=== PATIENT | female | born 1985 | race Caucasian/White ===

== ENCOUNTER 2019-09-09 21:11 | Emergency (ER) | payer OTHER, SELFPAY ==
[2019-09-09 21:13] VITALS: BP 129/92; PULSE 121; RESP 25; TEMP 37.2; O2SAT 99; BMI 31.1
[2019-09-09 21:15] VITALS: BP 127/80; PULSE 106; RESP 21; TEMP 37.2; O2SAT 100
--- NOTE | 2019-09-09 21:28 | CT_ITS ---
STUDY: CT ABDOMEN AND PELVIS WITH CONTRAST REASON FOR EXAM: Female, 34 years old. LEFT SIDE ABD PAIN, S/P HYSTERECTOMY 4 WEEKS AGO, UTERUS ONLY, FEVER RADIATION DOSAGE (If Supplied By Facility): CTDIvol = ( 10.90 ) mGy, DLP = ( 611.55 ) mGycm TECHNIQUE: Transaxial images were obtained from the dome of the diaphragm to the symphysis pubis without oral contrast. IV 100mL Isovue-300 was administered. Sagittal and coronal images were reconstructed. Individualized dose optimization techniques were used for this CT. COMPARISON: None. FINDINGS: The visualized lung bases are unremarkable. The visualized portions of the heart are within normal limits. Normal liver. Normal gallbladder and extrahepatic biliary system. Normal spleen. Normal pancreas. Normal bilateral adrenal glands. Normal right kidney. There is a too small to characterize low-attenuation focus within the left kidney which may reflect an underlying cyst. Normal visualized stomach. Normal small intestine. Normal colon. The appendix is visualized and appears normal. Normal abdominal aorta. Normal inferior vena cava. There is a filling defect noted within the right ovarian vein (image 59 series 2). There are filling defects noted within the left ovarian vein as well. Normal urinary bladder. There is absence of the uterus consistent with a prior hysterectomy. There are postsurgical changes along the anterior abdominal wall. Normal osseous structures. 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 N.B. : The above information has been verbally conveyed by Phuong Mccormick MD to Dr. Alex MD, on 09/09/2019 22:18:42 (ET). Electronically Signed: Phuong Mccormick MD at 22:19 EDT Tel , Service support ,
--- NOTE | 2019-09-09 21:31 | ED.VISSUMM ---
- ER Visit Summary Date of Service: 09/09/19 Chief Complaint: Left-sided abdominal discomfort and fever History of Present Illness: The patient is a 34 F no seen past medical history. 8 weeks ago patient had dental surgery. 4 weeks ago she had a laparoscopic hysterectomy with takedown of adhesions done by Dr. Leavitt at [facility]. Patient states she was doing well. Today she came down with a fever and left-sided abdominal discomfort. Said the pain is primarily when she lays on her right side she feels pulling on the left. She is able to eat and drink. She denies any nausea vomiting or diarrhea. No dysuria or constipation. No cough no sore throat. No earache. Patient states she was doing well until this afternoon. Physical Examination: Young female no acute distress vital signs currently stable afebrile. Temperature 99. Pulse ox 9 9% on room air no hypoxia. H EENT exam unremarkable. Moist with membranes. Posterior pharynx normal. TMs normal. Neck nontender no lymphadenopathy. Lungs clear to auscultation bilaterally. Heart regular rhythm rate about 110 no murmur. Abdomen soft, nondistended. Normal bowel sounds no peritoneal signs. The tenderness on the left she describes that she lays on her right side is not really reproducible. She has a periumbilical laparoscopic surgical site which is dry and clean without signs of infection. No redness. She is moving all 4 extremities. Calves are nontender. Back nontender. Skin unremarkable. Neurologically she is awake and alert with no focal motor deficits. Test Results: White count 3. Hemoglobin 11. No labs available for comparison. No bands. Chemistries normal normal creatinine and gap. CT abdomen pelvis with IV contrast showed a normal appendix. The only significant abnormality was bilateral ovarian vein thrombosis. I specifically discussed this with the radiologist who called me to tell me her read. She states she seen this before after surgery. Urinalysis has 25-50 white cells but no nitrates and only rare bacteria. Clinically she is no dysuria. I will send a culture but not treat at this time. I discussed this with the patient. Emergency Department Course and Treatment: Patient status post hysterectomy laparoscopically with takedown of adhesions about 4 weeks ago. Has a benign exam but complains of abdominal pain on the left and fever. Treatment Plan: Patient will be started on a daily aspirin. I spoke to the ObGyn's diesel engine tester who is on-call for him. Patient will follow-up with their office. I discussed all test results with the patient and her . Repeat exam her abdomen is benign at 23:20 PM. Disposition: Discharged to home Impression: Left-sided abdominal pain with fever Status post laparoscopic hysterectomy 4 weeks ago Lateral ovarian vein thrombosis of uncertain significance This note was generated with [employer] dictation software. It may contain incorrect words, spelling, and punctuation that were not noted in review of the chart prior to signing ED Disposition - Plan for ED Patient: Disposition: Home or Assisted Living Instructions: ABDOMINAL PAIN, Unknown Cause, (Female) Referrals: Arnie Leavitt, [STAFF PHYSICIAN] - As soon as possible Additional Instructions: The only abnormality we found on your labs and CAT scan crow was small clots in the veins of your ovaries. This beat may be of no specific significance. We will start you on a baby aspirin a day. And have you follow-up with your CLIENT APPLICATION SUPPORT SPECIALIST Dr. Leavitt. I spoke to his diesel engine tester crow.
[2019-09-09] MEDS: 0.9% Normal Saline 1,000 ML 1000 ML IV (21:35)
[2019-09-09 21:39] LABS: Absolute Lymphocyte Count 0.61 X10^3/uL (0.83-4.51); Absolute Neutrophil Count 2.4 X10^3/uL (2.0-7.7); Basophil# 0.01 X10^3/uL; Basophil% 0.3 % (0-1); Eosinophil# 0.01 X10^3/uL; Eosinophils% 0.3 % (0-5); Hematocrit 35.6 % (37-47); Hemoglobin 11.1 g/dL (12.0-15.0); Lymphocyte # 0.61 X10^3/ul (4.0); Lymphocyte % 16.5 % (19-41); Mean Corp Hgb Conc 31.2 g/dL (32-36); Mean Corpuscular Hgb 24.3 pg (27.0-32.0); Mean Corpuscular Volume 78.1 fL (81-99); Mean Platelet Vol. 9.2 fl (6.2-12.0); Monocyte# 0.62 X10^3/uL; Monocyte% 16.8 % (0-10); NRBC Flagged by Analyzer 0 % (0-5); Neutrophil # 2.43 X10^3/uL (2.7-7.7); Neutrophil % 65.8 % (47-70); Platelet Count 267 K/mm3 (150-450); RBC Distribution Width CV 15.5 % (11.6-14.6); RBC Distribution Width SD 43.8 fl (35.1-43.9); Red Blood Count 4.56 M/mm3 (4.2-5.4); White Blood Count 3.7 K/mm3 (4.4-11.0)
[2019-09-09 21:48] LABS: Anion Gap 8 (5-15); BUN 9 mg/dL (7-18); BUN/Creat Ratio 9.6 RATIO (10-20); Calcium,Total 9.1 mg/dL (8.5-10.1); Chloride 106 mmol/L (98-107); Creatinine, Serum 0.94 mg/dL (0.55-1.02); EST Glomerular Filtration Rate 73 mL/min (>60); Est Glom Filt Rate - Afr Amer 88 mL/min (>60); Estimated Creatinine Clearance 67.33 ml/min; Glucose 105 mg/dL (74-106); Potassium 3.6 mmol/L (3.5-5.1); Sodium Level 139 mmol/L (136-145)
[2019-09-09 22:44] VITALS: BP 183/88; PULSE 88; RESP 20; TEMP 37.3; O2SAT 91
[2019-09-09 22:45] LABS: Mucous, Urine 0 SEEN /hpf (<or=2+); Red Blood Cells-Urine 0 SEEN /hpf (0-5)
[2019-09-09 22:51] LABS: Color, Urine Straw (Yellow); Glucose, Dipstick Normal (Normal); Ketone-Dipstick Negative (Negative); Leukocyte Esterase-Dipstick 500 /ul (Negative); Nitrite-Dipstick Negative (Negative); Occult Blood-Urine 25 /ul (Negative); Protein-Dipstick Negative (Negative); Urine Bilirubin Dipstick Negative (Negative); Urine Clarity Cloudy (Clear); Urine Urobilinogen Normal (Normal)
--- NOTE | 2019-09-09 22:51 | ED.DEP ---
ED Disposition - Plan for ED Patient: Disposition: Home or Assisted Living Instructions: ABDOMINAL PAIN, Unknown Cause, (Female) Referrals: Arnie Leavitt, [STAFF PHYSICIAN] - As soon as possible Additional Instructions: The only abnormality we found on your labs and CAT scan tonight was small clots in the veins of your ovaries. This beat may be of no specific significance. We will start you on a baby aspirin a day. And have you follow-up with your FLAT LOCK OPERATOR Dr. Leavitt. I spoke to his vp securities crow.
[2019-09-09 23:04] LABS: Squamous Epithelial Cells - UA 0-5 SEEN /hpf (5-10)
[2019-09-09 23:05] LABS: White Blood Cells 25-50 SEEN /hpf (0-5)
[2019-09-09 23:06] LABS: Bacteria RARE /hpf (None Seen)
[2019-09-09 23:19] VITALS: BP 123/78; PULSE 87; RESP 18; O2SAT 99
== END 2019-09-09 23:35 | disposition home or self-care (01) ==
PROVIDERS: Emergency Provider Emergency Medicine
DX: R10.9 Unspecified abdominal pain (principal); R50.9 Fever, unspecified; I82.890 Acute embolism and thrombosis of other specified veins; Z90.710 Acquired absence of both cervix and uterus
CPT/HCPCS: 74177; 80048; 81001; 85025; 87086; 87088; 96360; 96361; 99285; J7030; Q9967

== ENCOUNTER 2022-05-25 10:29 | Day surgery (SDC) | payer MEDICAID, SELFPAY ==
[2022-05-25] VITALS (15 sets, daily range): BP systolic 107–135; BP diastolic 63–92; PULSE 66–95; RESP 12–18; TEMP 36.3–37.5; O2SAT 92–100; BMI 28.8
--- NOTE | 2022-05-25 | GALL_PTH ---
PATIENT: MATTHIEU SORIANO LOC: [facility] U#:[id number] AGE/SX: 37/F ROOM: RE05/25/[address]: Dr. Ivonne Arreguin MD : 1985 BED: DIS: 05/25/2022 SPEC #: [id number] RECD: 05/25/22 14:49 STATUS: NISA FADY #: [id number] GARCIA: 05/25/22 00:[address]: Ivonne Arreguin DEPT: SURGICAL PATHOLOGY RECD BY: Daniel Case ENTERED: 05/28/22 10:03 SP TYPE: [facility] DR: Dr. Cuco Boyd, DO Tissues: Gallbladder, NOS Procedures: Surgery Specimen Level III HEADER OPERATION: Laparoscopic cholecystectomy with IOC PRE-OP DIAGNOSIS: Biliary dyskinesia, draining postoperative wound TISSUE SUBMITTED: Gallbladder MICROSCOPIC DIAGNOSIS Gallbladder, cholecystectomy: Mild chronic cholecystitis. See comment. SHANNON:allison 05/29/2022 COMMENT No stones are identified in the container or in the gallbladder. MICROSCOPIC DESCRIPTION Slides are reviewed. GROSS DESCRIPTION Received is one container labeled with the patient's name and designated gallbladder. The specimen consists of a gallbladder measuring 8 x 2.5 x 2.7 cm. The external surface is smooth and glistening. Focally, it is granular, hemorrhagic and contains cautery artifact. The lumen of the gallbladder contains green mucoid bile and no calculi. The mucosa is bile-stained and without any mass lesions. The gallbladder wall averages 0.1 cm in thickness and is free of mass lesions. Ticket Collector sections of the gallbladder and the cystic duct at margin of resection are submitted in one cassette. / AM:allison 05/28/2022 TC:3 CPT: 46412
[2022-05-25 11:13] LABS: Hematocrit 41.7 % (37-47); Hemoglobin 14.5 g/dL (12.0-15.0); Mean Corp Hgb Conc 34.8 g/dL (32-36); Mean Corpuscular Hgb 31.2 pg (27.0-32.0); Mean Corpuscular Volume 89.7 fL (81-99); Mean Platelet Vol. 9.8 fl (6.2-12.0); Platelet Count 203 K/mm3 (150-450); RBC Distribution Width CV 11.6 % (11.6-14.6); RBC Distribution Width SD 37.9 fl (35.1-43.9); Red Blood Count 4.65 M/mm3 (4.2-5.4); White Blood Count 3.2 K/mm3 (4.4-11.0)
[2022-05-25] MEDS: Lactated Ringers 1,000 ML 15 ML IV ×3 (11:15→14:29)
[2022-05-25 11:47] LABS: Anion Gap 5 (5-15); BUN 11 mg/dL (7-18); BUN/Creat Ratio 13.3 RATIO (10-20); Calcium,Total 9.1 mg/dL (8.5-10.1); Chloride 107 mmol/L (98-107); Creatinine, Serum 0.83 mg/dL (0.55-1.02); EST Glomerular Filtration Rate 83 mL/min (>60); Est Glom Filt Rate - Afr Amer 100 mL/min (>60); Estimated Creatinine Clearance 80.91 ml/min; Glucose 100 mg/dL (74-106); Sodium Level 139 mmol/L (136-145)
--- NOTE | 2022-05-25 11:52 | HP.PCM_ITS ---
History and Physical Date of Admission: 05/25/22 Date of Service:? 05/23/22 MR#: [id number] Acct: [id number] Name:MATTHIEU MAZARIEGOS Rep #: [id number] : 1985 ? ? Provider: Dr. Ivonne Arreguin MD Age/Sex:? 37/F ? ? Location: [facility] Status: Signed Intake Vital Signs ? 05/23/2213:24 Height 5 ft 4 in Weight: 170 lb 6 oz BMI 29.2 BP 112/70 Blood Pressure Location Lt brachial Position Sitting Respiration 17 Pulse 75 Pulse Source Monitor Temp 97.6 F L Temp Source Temporal Pulse Oximetry (%) 99 Oxygen Delivery Method room air Intake Visit Reasons:?ABDOMINAL PAIN & ABNORMAL HIDA Chief Complaint: Abd Pain & Abnormal HIDA Animal Laboratory Technician Required: No Is patient in pain?: Yes Allergies ibuprofen Adverse Reaction (Verified 05/23/22 13:25) Nausea Medications cholecalciferol (vitamin D3) 50 mcg (2,000 unit) capsule 2,000 units PO DAILY 09/09/19 [History Confirmed 05/23/22] ergocalciferol (vitamin D2) 1,250 mcg (50,000 unit) capsule 50,000 unit PO Q7D 09/09/19 [History Confirmed 05/23/22] ferrous gluconate 324 mg (37.5 mg iron) tablet 324 mg PO DAILY 09/09/19 [History Confirmed 05/23/22] fluoxetine 20 mg capsule 20 mg PO DAILY 09/09/19 [History Confirmed 05/23/22] aspirin 81 mg tablet,delayed release (Adult Low Dose Aspirin) 81 mg PO DAILY 05/23/22 [History Confirmed 05/23/22] PFSH Surgical History?(Updated 05/23/22 @ 13:40 by Ashley Johnson) H/O: hysterectomy S/P section Social History? Smoking Status:? Never smoker alcohol intake:? never substance use type:? does not use HPI HPI HPI: 37 year-old female presents due to right upper quadrant/epigastric pain which she gets daily states is worse after eating.? Patient had an ultrasound showed no gallstones normal gallbladder wall no pericholecystic fluid normal common bile duct.? Patient's HIDA scan showed ejection fraction of 35% at 58 minutes which is abnormal.? Patient was previously on omeprazole 40 mg p.o. daily for about 2 months stopped right before she had the HIDA scan as she is not having difference with the pain.? Patient states HIDA scan did make her pain worse.? Patient states she has not been really able to eat is nauseated daily denies any vomiting currently.? Patient did have a hysterectomy about 2 years ago at her umbilicus she had an incision that has continued to drain slightly patient states that she was told by her BIOLOGY ADJUNCT INSTRUCTOR to put some powder in it. ROS General General: Yes weight change and fatigue; No appetite, colon cancer or breast cancer Additional Details: Weight Loss HEENT HEENT: No difficulty swallowing, eye injury, eye surgery, swollen glands or hoarseness Endo Endocrine: No thyroid disease, diabetes mellitus, thyroid cancer, Hair loss, heat intolerance or cold intolerance Skin Skin: No rash or changing moles Musc Musculoskeletal: Yes back problems; No arthritis, rheumatoid arthritis, gout or joint pain Cardio Cardiovascular: No murmur, pacemaker, heart disease, atrial fibrillation, high blood pressure, heart attack, heart stent, palpitations, shortness of breat with exertion or chest pain Psych Psychiatric: Yes depression and anxiety Resp Respiratory: No shortness of breath, No sleep apnea, No cough, No COPD, No asthma, No emphysema and No wheezing Gastro Gastrointestinal: Yes abdominal pain, Yes nausea or vomiting, No diarrhea, Yes constipation, No blood in stool, Yes acid reflux, No hemorrhoids, No ulcers, Yes gallbladder problem and No black,tarry stools Sebas Hematologic: No blood thinners, No blood disorders, No bleeding, No anemia and Yes blood clots Neuro Neurologic: Yes numbness and Yes tingling Exam Const General: cooperative, healthy appearing and no acute distress [facility] Head: normal to inspection Resp Effort & Inspection: normal respiratory effort Cardio Rate: regular rate GI Inspection: non-distended Palpation: soft, no guarding, no hernias and tender (Greatest in the epigastric and right upper quadrant, no guarding or rebound) in the epigastrum, in the LUQ and in the RUQ Other: Patient does present to her umbilicus looks like there is small amount of drainage.? Patient states been like that since her surgery 2 years ago, patient had a hysterectomy with a trocar incision at her umbilicus. Skin General: no rashes or lesions noted Neuro General: patient oriented x3 Extrem General: no clubbing, cyanosis or edema Psych Affect: normal affect Assessment and Plan Assessment and Plan (1) Biliary dyskinesia: ?Status:?Acute ?Comment: at umbilicus (2) Draining postoperative wound: ?Status:?Acute Plan Did personally review patient's HIDA scan as well as ultrasound. Discussed with patient I would not plan to go in at the umbilicus had plan to go above the umbilicus and deal with that at another time as likely it may need surgery to get it stopped draining unsure what is currently draining whether it could be a suture etc.? We will also get the op note from 2 years ago. Reviewed the anatomy with the patient and discussed the procedure: laparoscopic cholecystectomy with cholangiograms, possible open. Review risks including but not limited to bleeding, infection, hernia, bile leak, retained gallstones requiring another procedure ERCP- Endoscopic Retrograde Cholangiopancreatography, injury to another organ (bile ducts, common bile duct, small bowel, etc.) and conversion to an open procedure. All questions were answered.? Patient was agreeable with plan. Ivonne Arreguin M.D. Pager: [phone] [facility] [address] [place] [address], [address] [place] [address] Office: [phone] Coding Level of Care Code Off vis,new,level 4 Diagnoses Biliary dyskinesia? K82.8 Draining postoperative wound? T81.89XA 05/23/22 1349 <Electronically signed by Ivonne Arreguin MD> Date Ivonne Arreguin MD
[2022-05-25] MEDS: Cefazolin 2 GM in 0.9% Normal Saline 100 ML IV (12:04)
--- NOTE | 2022-05-25 12:35 | RAD_ITS ---
STUDY: INTRAOPERATIVE CHOLANGIOGRAM. REASON FOR EXAM: Female, 37 years old. Laparoscopic cholecystectomy. FLUOROSCOPY TIME (if supplied): ( 6 seconds ) minutes/seconds. 27 images were submitted. TECHNIQUE: An intraoperative cholangiogram was performed by the surgeon. Imaging was provided. COMPARISON: None. FINDINGS: The visualized intra and extrahepatic biliary ducts are unremarkable. No intraluminal filling defect is seen. There is free flow of contrast into the duodenum. RAD/Cholangiogram/ O R,Initial IMPRESSION: Unremarkable intraoperative cholangiogram. Electronically Signed: Kelvin Galvan MD at 9:33 EST ,
[2022-05-25] MEDS: Bupivacaine 0.25% 30 ML Vial (13:00)
--- NOTE | 2022-05-25 13:04 | PCM.OPRPT ---
Report of Operation Date of Procedure: 05/25/22 Pre-Operative Diagnosis: Biliary dyskinesia Post-Operative Diagnosis: Same Surgery/Procedure Performed:: Laparoscopic cholecystectomy with cholangiograms Surgeon: Ivonne Arreguin border inspector: Lyric Hunter Type of Anesthesia: General/Supplemental Anesthesiologist: Johnie Burt Special Medications: Ancef 2 g IV x1 Specimen's removed: Gallbladder Estimated Blood Loss (mL): < 10 cc Description of Procedure: Indications: this is a 37 year-old female who developed abdominal pain/nausea/vomiting and on workup was found to have no gallstones, biliary dyskinesia with an ejection fraction of 35% at 58 minutes on a HIDA scan, with a normal common bile duct. Laparoscopic cholecystectomy was elected. Description procedure: The patient was placed on operating table in supine position. A timeout was completed verifying correct patient, procedure, site, position and special equipment prior to beginning procedure. General Anesthesia was induced. The abdomen was prepped and draped in usual sterile fashion. The umbilicus did appear to have a mild fungal infection this area was prepped off with Ioban and prepped separately with Betadine as well. An incision was made in the natural skin line above the umbilicus. The fascia was elevated and incised. The peritoneum was elevated and incised. Entry into the peritoneum was confirmed visually and no bowel was noted in the vicinity of the incision. Harris trocar was placed. The abdomen was insufflated with carbon dioxide to a pressure of 12-15 mmHg. Patient tolerated insufflation well. The laparoscope was then inserted and abdomen inspected. No injuries from initial trocar placement were noted. Additional trochars were then inserted in the following locations 5 mm trocar in the epigastrium and 2 more 5 mm trochars along the right costal margin. The abdomen was inspected no abnormalities were found. The table is placed in reverse Trendelenburg position with the right side up. The dome of the gallbladder was grasped with atraumatic grasper passed through the lateral port and retracted over the dome of the liver. Infundibulum was then grasped with atraumatic grasper through the midclavicular port and retracted to the right lower quadrant. This maneuver exposed Calot's triangle. The peritoneum overlying the gallbladder infundibulum was then incised and cystic duct and artery identified and circumferentially dissected. Bryan catheter was used for cholangiograms. The cholangiogram showed good filling of the common bile duct into the duodenum with no filling defects, good filling of the right and left bile ducts as well. The cystic duct and artery were then doubly clipped and divided close to the gallbladder. The gallbladder then dissected from its peritoneal attachments by electrocautery. Hemostasis was checked and the gallbladder was removed using the endoscopic retrieval bag through the umbilical port. The gallbladder is passed off table as specimen. The gallbladder fossa was irrigated with saline and hemostasis obtained. There is no evidence of bleeding from the gallbladder fossa or cystic artery leakage of bile from the cystic duct stump. Secondary trochars removed under direct vision. No bleeding was noted the trocar sites. The laparoscope was withdrawn and umbilical trocar removed. The abdomen was allowed to collapse. The fascia of the 12 mm trocar was closed with a [id number] 0 Vicryl suture. The skin was closed with sutures of 4-0 Monocryl and Steri-Strips. The patient was extubated. The patient tolerated procedure well and was taken to the postanesthesia care unit in stable condition. Complications None
--- NOTE | 2022-05-25 13:12 | DCINST_ITS ---
Discharge Instructions Diet Discharge Diet: Light diet - advance as tolerated Activity Discharge Activity: May Not Drive (while taking narcotic pain medications.) May shower in (days): 1 Lifting Restrictions: no lifting >20 lbs x 2 wks, no strenuous exercise for 4 wks Dressing / Incision Call your doctor if your incision/area has: Continuous Slow Oozing, Sudden Increased Bleeding, Increased Pain/ Swelling, Increased Redness, Foul Smelling Discharge and Swelling at the incision site Call your doctor if you observe: Fever of 101 or Higher Remove Dressing in: 2 days Cleanse incision/area with: Soap & Water Additional Dressing/Incision Instructions:: Steri-Strips will fall off in 7 to 10 days, if they do not fall off okay to remove after 10 days. Keep supraumbilical incision dressed due to the likely fungal infection in the umbilicus. Use nystatin twice a day in the umbilicus and keep a gauze or cotton ball to keep that area dry as well. Can also use the nystatin at the lower abdominal fold as well. Follow Up Care Please Follow Up With: Ivonne Arreguin MD When: Call the office for a follow-up appointment 2 weeks; after 5 PM and on the weekends call [phone] with any concerns. Test Results: Test results from this visit will be discussed in further detail at your follow- up appointment, if applicable. Discharge Plan Admission Attending Provider: Ivonne Arreguin Primary Care Provider: Cuco Boyd Discharge Orders/Prescriptions Prescriptions: New oxycodone-acetaminophen 5-325 mg tablet 1 tab PO Q6H PRN (Reason: pain) 3 Days Qty: 14 0RF nystatin 100,000 unit/gram powder 1 applic topical BID Qty: 30 0RF Rx Instructions: Apply powder to umbilicus twice daily. Keep gauze or cotton balls in umbilicus to keep that area dry as well. Continued aspirin [Adult Low Dose Aspirin] 81 mg tablet,delayed release (DR/EC) 81 mg PO DAILY ergocalciferol (vitamin D2) 50,000 UNIT capsule 50,000 unit PO Q7D fluoxetine 20 MG capsule 20 mg PO DAILY cholecalciferol (vitamin D3) 2,000 UNIT capsule 2,000 units PO DAILY ferrous gluconate 324 MG tablet 324 mg PO DAILY Other Ambulatory Orders: 12 Lead EKG (Routine) Timeframe: [id number] Location: None Selected Ordered By: Dr. Esteban Lares Referrals / Follow Up: Cuco Boyd DO [Primary Care Provider] - Disposition Disposition (needs filled in before D/C Order can be placed): Home, Self Care
--- NOTE | 2022-05-25 19:50 | SUR.PHASEII ---
AMBULATED TO BATHROOM w/ ONE ASSIST AND WAS ABLE TO VOID. REPORTS NAUSEA RESOLVED AFTER BENADRYL/REGLAN. DENIES NEED FOR PAIN MEDICATION. STATES THEY HAVE A PLAN TO SPEND THE NIGHT AT [facility] WHICH IS EASIER ACCESS INSIDE THE HOUSE. BOTH PATIENT & VERBALIZE UNDERSTANDING OF D/C INSTRUCTIONS.
== END 2022-05-25 20:13 | disposition home or self-care (01) ==
LOC: SDC 10:31 → AC 10:32
PROVIDERS: Anesthesiology; PCP Family Medicine; Referring Provider Surgery; Visit Provider Surgery
PROC: (CPT 47610; principal; 2022-05-25 11:40)
DX: K81.1 Chronic cholecystitis (principal); K82.8 Other specified diseases of gallbladder; T81.89XA Other complications of procedures, not elsewhere classified, initial encounter; F41.9 Anxiety disorder, unspecified; F32.A Depression, unspecified; Z86.19 Personal history of other infectious and parasitic diseases
CPT/HCPCS: 47563; 00790; 74300; 76000; 80048; 84443; 85027; 88304; J7120; J2405

== ENCOUNTER 2022-06-14 05:41 | Emergency (ER) | payer MEDICAID, SELFPAY ==
[2022-06-14 05:44] VITALS: BP 130/78; PULSE 96; RESP 18; TEMP 37.6; O2SAT 96; BMI 30.9
--- NOTE | 2022-06-14 05:57 | EX.ED.DYSGE1 ---
HPI History of Present Illness Chief Complaint: Fever Informant: patient Onset/Context/Timing Onset: Yesterday Context: Gradual Onset Timing: Continuous Quality: Buzzing Location: Head Worsened by: Nothing Relieved by: Nothing Narrative Narrative: Patient presents with headache, weakness, and backache that began yesterday. Patient states she started with a backache and thought she was having a urinary tract infection. Patient states she then developed a headache and weakness all over. Patient states her headache is likely buzzing in her head. Patient states her symptoms have been constant since yesterday. Patient states nothing makes it better nothing makes it worse. Patient admits to a fever and blurred vision. Patient states her headache radiates into her neck and back. [facility] Medical History Anxiety Cardiology follow-up encounter Depression DVT (deep venous thrombosis) Gastric reflux Heartburn History of Clostridium difficile infection History of echocardiogram History of edema History of irregular heartbeat Low iron Non-smoker Restless legs Syncope Thyroid disease Wears dentures Wears glasses Home Medications cholecalciferol (vitamin D3) 50 mcg (2,000 unit) capsule 5,000 units PO DAILY 09/09/19 [History Last Taken Unknown] ergocalciferol (vitamin D2) 1,250 mcg (50,000 unit) capsule 50,000 unit PO Q7D 09/09/19 [History Last Taken Unknown] ferrous gluconate 324 mg (37.5 mg iron) tablet 324 mg PO DAILY 09/09/19 [History Last Taken Unknown] fluoxetine 20 mg capsule 80 mg PO DAILY 09/09/19 [History Last Taken Unknown] nystatin 100,000 unit/gram topical powder 1 applic topical BID #30 grams 05/25/22 [Rx Last Taken Unknown] Allergy/AdvReac Type Severity Reaction Status Date / Time ibuprofen AdvReac Nausea Verified 05/25/22 10:52 Surgical History H/O: hysterectomy History of oral surgery S/P section S/P laparoscopic cholecystectomy Social History Smoking Status: Never smoker alcohol intake: never substance use type: does not use ROS ROS ED Constitutional Constitutional ED: Reports fever(s) and subjective; Denies chills Eyes Eyes: Reports blurry vision; Denies change in vision ENT ENT ED: Denies rhinorrhea or sore throat Cardiovascular Cardiovascular: Denies chest pain or palpitations Respiratory/Chest Respiratory/Chest: Denies cough or dyspnea Gastrointestinal Gastrointestinal: Denies nausea or vomiting Genitourinary Genitourinary ED: Denies dysuria or hematuria Musculoskeletal Musculoskeletal: Reports back pain and neck pain Integumentary Denies abscess or rash Neurologic Neurologic: Reports headache(s) and weakness Allergic/Immunologic Allergic/Immunologic ED: Denies mouth swelling or urticaria EXAM Physical Exam Const Vital Signs: 06/14/22 05:44 06/14/22 05:44 Temperature 99.6 F H Temperature Source Oral Pulse Rate 96 Respiratory Rate 18 Respiratory Pattern Irregular Blood Pressure 130/78 H Blood Pressure Mean 95 Pulse Ox 96 Positive well nourished and well developed General Appearance ED: well developed and NAD HEENT Reports moist mucous membranes Neck supple and no JVD Resp normal respiratory effort and clear to auscultation bilaterally Cardio regular rate and regular rhythm GI normal to inspection, nondistended, normoactive bowel sounds and non-distended Palpation: soft Neuro oriented x3 and CN's II-XII intact bilaterally Sensorium / Orientation: alert Motor Exam: strength 5/5 throughout Psych mental status grossly normal MDM MDM MDM Narrative Medical decision making narrative: Patient was given IV fluids and Tylenol here. CBC was within normal limits. Comprehensive metabolic profile was within normal limits with the exception of a slightly elevated total bilirubin of 1.5. Lactate was normal at 1.2. COVID-19 rapid antigen was obtained and was negative. Influenza A and influenza B antigens were obtained and were negative. Urinalysis was obtained and was within normal limits. Patient was advised that this may be a viral illness. Patient was instructed to drink plenty of fluids. Patient was instructed to take Tylenol or ibuprofen as needed for any pain or fevers. Patient was instructed to follow-up with her primary care physician in 5 to 7 days. Patient understood and was agreeable with the plan. All questions were answered. Lab Data Attestation: I reviewed the patient's lab results. Labs: Laboratory Results - last 24 hr 06/14/22 06/14/22 06/14/22 05:45 05:45 05:45 WBC 8.7 RBC 4.55 Hgb 14.2 Hct 41.0 MCV 90.1 MCH 31.2 MCHC 34.6 RDW Std Deviation 38.1 RDW Coeff of Sharmin 11.6 Plt Count 199 MPV 10.2 Immature Gran % (Auto) 0.300 Neut % (Auto) 84.8 H Lymph % (Auto) 8.3 L [place] % (Auto) 6.2 Eos % (Auto) 0.2 Baso % (Auto) 0.2 Absolute Neuts (auto) 7.3 Absolute Lymphs (auto) 0.72 L Nucleated RBC % 0 Sodium 136 Potassium 3.8 Chloride 107 Carbon Dioxide 23.0 Anion Gap 6 BUN 8 Creatinine 0.86 Estim Creat Clear Calc 78.09 Est GFR (MDRD) Af Amer 95 Est GFR (MDRD) Non-Af 79 BUN/Creatinine Ratio 9.2 L Glucose 104 Lactic Acid 1.2 Calcium 8.8 Total Bilirubin 1.50 H AST 54 H ALT 70 H Alkaline Phosphatase 44 L Total Protein 7.6 Albumin 3.8 Globulin 3.8 Albumin/Globulin Ratio 1.0 Urine Color Urine Clarity Urine pH Ur Specific [place] Urine Protein Urine Glucose (UA) Urine Ketones Urine Occult Blood Urine Nitrite Urine Bilirubin Urine Urobilinogen Ur Leukocyte Esterase 06/14/22 07:05 WBC RBC Hgb Hct MCV MCH MCHC RDW Std Deviation RDW Coeff of [place]min Plt Count MPV Immature Gran % (Auto) Neut % (Auto) Lymph % (Auto) [place] % (Auto) Eos % (Auto) Baso % (Auto) Absolute Neuts (auto) Absolute Lymphs (auto) Nucleated RBC % Sodium Potassium Chloride Carbon Dioxide Anion Gap BUN Creatinine Estim Creat Clear Calc Est GFR (MDRD) Af Amer Est GFR (MDRD) Non-Af BUN/Creatinine Ratio Glucose Lactic Acid Calcium Total Bilirubin AST ALT Alkaline Phosphatase Total Protein Albumin Globulin Albumin/Globulin Ratio Urine Color Yellow Urine Clarity Sl. Cloudy Urine pH 8.0 Ur Specific [place] 1.010 Urine Protein Negative Urine Glucose (UA) Normal Urine Ketones Negative Urine Occult Blood Negative Urine Nitrite Negative Urine Bilirubin Negative Urine Urobilinogen Normal Ur Leukocyte Esterase Negative Radiography Chest X-Ray - ED: 2 View, Read by ED Physician, Read by Radiologist and No Acute Disease Diagnostic Testing: Clinical Impression(s) from Imaging Studies Chest X-Ray 06/14/22 06:19 IMPRESSION: No radiographic evidence of acute cardiopulmonary disease. Electronically Signed: Manuel Castro MD at 6:47 EST , Discharge Plan Triage Chief Complaint: Fever ED Provider: Johnie Ramos Dx/Rx/DC Orders Clinical Impression: Viral illness Instructions: ED Viral Syndrome (Adult) Prescriptions: No Action ergocalciferol (vitamin D2) 50,000 UNIT capsule 50,000 unit PO Q7D fluoxetine 20 MG capsule 80 mg PO DAILY cholecalciferol (vitamin D3) 2,000 UNIT capsule 5,000 units PO DAILY ferrous gluconate 324 MG tablet 324 mg PO DAILY nystatin 100,000 unit/gram powder 1 applic topical BID Qty: 30 0RF Rx Instructions: Apply powder to umbilicus twice daily. Keep gauze or cotton balls in umbilicus to keep that area dry as well. Primary Care Provider: Cuco Boyd Referrals: Cuco Boyd DO [Primary Care Provider] - 5-7 Days Disposition Disposition: Home, Self Care
[2022-06-14] MEDS: 0.9% Normal Saline 1,000 ML 1000 ML IV (06:13)
[2022-06-14 06:16] LABS: Absolute Lymphocyte Count 0.72 X10^3/uL (0.83-4.51); Absolute Neutrophil Count 7.3 X10^3/uL (2.0-7.7); Basophil# 0.02 X10^3/uL; Basophil% 0.2 % (0-1); Eosinophil# 0.02 X10^3/uL; Eosinophils% 0.2 % (0-5); Hemoglobin 14.2 g/dL (12.0-15.0); Lymphocyte # 0.72 X10^3/ul (0.83-4.51); Lymphocyte % 8.3 % (19-41); Mean Corp Hgb Conc 34.6 g/dL (32-36); Mean Corpuscular Hgb 31.2 pg (27.0-32.0); Mean Corpuscular Volume 90.1 fL (81-99); Mean Platelet Vol. 10.2 fl (6.2-12.0); Monocyte# 0.54 X10^3/uL; Monocyte% 6.2 % (0-10); NRBC Flagged by Analyzer 0 % (0-5); Neutrophil # 7.33 X10^3/uL (2.7-7.7); Neutrophil % 84.8 % (47-70); Platelet Count 199 K/mm3 (150-450); RBC Distribution Width CV 11.6 % (11.6-14.6); RBC Distribution Width SD 38.1 fl (35.1-43.9); Red Blood Count 4.55 M/mm3 (4.2-5.4); White Blood Count 8.7 K/mm3 (4.4-11.0)
[2022-06-14] MEDS: Acetaminophen 500 MG Tablet 1000 MG PO (06:17)
--- NOTE | 2022-06-14 06:19 | RAD_ITS ---
INDICATION: Fever EXAMINATION/TECHNIQUE: X-RAY - XR Chest 2 Views COMPARISON: None. FINDINGS: LINES/DEVICES: None. LUNGS: No pulmonary edema or focal airspace consolidation. No sizable pleural effusion. No pneumothorax detected. MEDIASTINUM AND CARDIOVASCULAR STRUCTURES: Heart size within normal limits. Mediastinal contours unremarkable. BONES AND SOFT TISSUES: No acute findings. RAD/Chest PA and Lateral IMPRESSION: No radiographic evidence of acute cardiopulmonary disease. Electronically Signed: Manuel Castro MD at 6:47 EST ,
[2022-06-14 06:32] LABS: AST(SGOT) 54 U/L (15-37); Alanine Aminotransfer ALT/SGPT 70 U/L (13-56); Albumin, Serum 3.8 g/dL (3.2-5.0); Alkaline Phosphatase 44 U/L (45-117); Anion Gap 6 (5-15); BUN 8 mg/dL (7-18); BUN/Creat Ratio 9.2 RATIO (10-20); Calcium,Total 8.8 mg/dL (8.5-10.1); Chloride 107 mmol/L (98-107); Creatinine, Serum 0.86 mg/dL (0.55-1.02); EST Glomerular Filtration Rate 79 mL/min (>60); Est Glom Filt Rate - Afr Amer 95 mL/min (>60); Estimated Creatinine Clearance 78.09 ml/min; Globulin 3.8 g/dL (2.2-4.2); Glucose 104 mg/dL (74-106); Potassium 3.8 mmol/L (3.5-5.1); Protein, Total 7.6 g/dL (6.4-8.2); Sodium Level 136 mmol/L (136-145)
[2022-06-14 06:48] VITALS: BP 128/74; PULSE 72; RESP 18; TEMP 37; O2SAT 98
[2022-06-14 06:53] LABS: Lactic Acid 1.2 mmol/L (0.4-1.9)
[2022-06-14 07:00] VITALS: BP 125/69; PULSE 78; RESP 16; TEMP 36.9; O2SAT 97
[2022-06-14 07:11] LABS: Bacteria 0 SEEN /hpf (None Seen); Mucous, Urine 0 SEEN /hpf (<or=2+); Red Blood Cells-Urine 0 SEEN /hpf (0-5); White Blood Cells 0 SEEN /hpf (0-5)
[2022-06-14 07:33] LABS: Color, Urine Yellow (Yellow); Glucose, Dipstick Normal (Normal); Ketone-Dipstick Negative (Negative); Leukocyte Esterase-Dipstick Negative /ul (Negative); Nitrite-Dipstick Negative (Negative); Occult Blood-Urine Negative /ul (Negative); Protein-Dipstick Negative (Negative); Urine Bilirubin Dipstick Negative (Negative); Urine Clarity Sl. Cloudy (Clear); Urine Urobilinogen Normal (Normal)
[2022-06-14 07:39] LABS: Squamous Epithelial Cells - UA 0-5 SEEN /hpf (5-10)
[2022-06-14 07:43] VITALS: BP 123/74; PULSE 80; RESP 18; TEMP 36.8; O2SAT 98
== END 2022-06-14 07:45 | disposition home or self-care (01) ==
PROVIDERS: Emergency Provider Emergency Medicine; PCP Family Medicine; Visit Provider Emergency Medicine
DX: B34.9 Viral infection, unspecified (principal)
CPT/HCPCS: 71046; 80053; 81001; 83605; 85025; 87428; 96360; 99285; J7030; A4216

== ENCOUNTER → 2022-08-23 | Outpatient (CLI) | payer MEDICAID, SELFPAY ==
[2022-08-23 08:18] VITALS: BP 117/69; PULSE 73; RESP 14; TEMP 36.3; O2SAT 98; BMI 28.3
[2022-08-23] MEDS: Cosyntropin 0.25 MG Vial IM (08:29)
[2022-08-23 09:19] LABS: Estradiol 144.3 pg/mL; Luteinizing Hormone 13.3 mIU/mL; T4 Free Direct 1.11 ng/dL (0.76-1.46); Thyroid Stim Hormone (TSH) 0.73 uIU/mL (0.358-3.74)
[2022-08-23 09:35] VITALS: BP 112/66; PULSE 64; RESP 14; TEMP 36.4; O2SAT 99
[2022-08-24 13:33] LABS: Adrenocorticotropic Hormone 15.9 pg/mL (7.2-63.3); Thyroid Peroxidase AB 11 IU/mL (0-34)
== END | disposition home or self-care (01) ==
LOC: MEDOUTP 08:07
PROVIDERS: PCP Family Medicine; Referring Provider Internal Medicine Endocrinology, Diabetes & Metabolism; Visit Provider Internal Medicine Endocrinology, Diabetes & Metabolism
DX: R55 Syncope and collapse (principal)
CPT/HCPCS: 36415; 82024; 82533; 82670; 83001; 83002; 84439; 84443; 86376; 96372; J0834

== ENCOUNTER → 2022-10-03 | Outpatient (CLI) | payer MEDICAID, SELFPAY ==
[2022-10-03 18:24] LABS: Vitamin B12 470 pg/mL (211-911)
== END | disposition home or self-care (01) ==
PROVIDERS: PCP Family Medicine; Visit Provider Nurse Practitioner Family
DX: R53.83 Other fatigue (principal)
CPT/HCPCS: 36415; 82607

== ENCOUNTER → 2022-11-09 | Outpatient (CLI) | payer MEDICAID, SELFPAY ==
--- NOTE | 2022-11-09 15:16 | CT_ITS ---
STUDY: CT ABDOMEN AND PELVIS WITH CONTRAST - URINARY TRACT REASON FOR EXAM: Female, 37 years old. ABD PAIN RADIATION DOSAGE (If Supplied By Facility): CTDIvol = ( 22.13 ) mGy, DLP = ( 904.63 ) mGycm TECHNIQUE: Oral and amp; IV Gastrografin and amp; 100mL Isovue-300 was administered. Transaxial images were obtained from the dome of the diaphragm to the symphysis pubis in the arterial, nephrographic and excretory phases. Multiplanar coronal and sagittal images were reformatted. Individualized Dose Optimization Techniques Were Used For This CT. COMPARISON: November 09, 2019 FINDINGS: The visualized lung bases are unremarkable. The visualized portions of the heart are within normal limits. Normal liver. Gallbladder not visualized likely due to cholecystectomy less likely due to contracted gallbladder. This is a new finding. Common duct 0.6 cm. Normal spleen. Normal pancreas. Normal bilateral adrenal glands. Normal visualized stomach. Normal small intestine. Normal colon. The appendix is visualized and appears normal. Normal abdominal aorta. No retroperitoneal adenopathy. Normal right kidney. Normal left kidney. Normal urinary bladder. Simple cyst left ovary new since prior study 1.5 x 1.6 cm. Normal abdominal wall. Normal osseous structures. Previously visualized ovarian vein thrombosis appears resolved. CT/Abdomen/Pelvis WITH Contrast IMPRESSION: Interval cholecystectomy or less likely contracted gallbladder. Simple cyst left ovary. Electronically Signed: Manuel Talbot MD, [facility] at 18:41 EDT ,
== END | disposition home or self-care (01) ==
LOC: CT 15:13
PROVIDERS: PCP Family Medicine; Referring Provider Family Medicine; Visit Provider Family Medicine
DX: R10.9 Unspecified abdominal pain (principal)
CPT/HCPCS: 74177; Q9967

== ENCOUNTER → 2023-01-15 | Outpatient (CLI) | payer MEDICAID, SELFPAY ==
[2023-01-15 12:30] LABS: Erythrocyte Sedimentation Rate 2 mm/hr (0-30)
[2023-01-15 12:35] LABS: Absolute Lymphocyte Count 1.43 X10^3/uL (0.83-4.51); Absolute Neutrophil Count 2.9 X10^3/uL (2.0-7.7); Basophil# 0.01 X10^3/uL; Basophil% 0.2 % (0-1); Eosinophil# 0.13 X10^3/uL; Eosinophils% 2.7 % (0-5); Hematocrit 42.5 % (37-47); Hemoglobin 14.6 g/dL (12.0-15.0); Lymphocyte # 1.43 X10^3/ul (0.83-4.51); Lymphocyte % 29.4 % (19-41); Mean Corp Hgb Conc 34.4 g/dL (32-36); Mean Corpuscular Hgb 31.7 pg (27.0-32.0); Mean Corpuscular Volume 92.2 fL (81-99); Mean Platelet Vol. 10.2 fl (6.2-12.0); Monocyte# 0.38 X10^3/uL; Monocyte% 7.8 % (0-10); NRBC Flagged by Analyzer 0 % (0-5); Neutrophil % 59.7 % (47-70); Platelet Count 236 K/mm3 (150-450); RBC Distribution Width CV 12.2 % (11.6-14.6); RBC Distribution Width SD 40.9 fl (35.1-43.9); Red Blood Count 4.61 M/mm3 (4.2-5.4); White Blood Count 4.9 K/mm3 (4.4-11.0)
[2023-01-15 16:12] LABS: AST(SGOT) 23 U/L (15-37); Alanine Aminotransfer ALT/SGPT 31 U/L (13-56); Alkaline Phosphatase 45 U/L (45-117); Anion Gap 5 (5-15); BUN 8 mg/dL (7-18); BUN/Creat Ratio 9.6 RATIO (10-20); CRP < 2.90 mg/L (0.0-3.0); Calcium,Total 8.8 mg/dL (8.5-10.1); Chloride 108 mmol/L (98-107); Creatinine, Serum 0.83 mg/dL (0.55-1.02); EST Glomerular Filtration Rate 82 mL/min (>60); Est Glom Filt Rate - Afr Amer 100 mL/min (>60); Free T3 2.7 pg/mL (2.18-3.98); Globulin 3.9 g/dL (2.2-4.2); Glucose 93 mg/dL (74-106); Potassium 4.3 mmol/L (3.5-5.1); Protein, Total 7.9 g/dL (6.4-8.2); Rheumatoid Factor < 10.0 IU/mL (<15); Sodium Level 139 mmol/L (136-145); T4 Free Direct 1.18 ng/dL (0.76-1.46); Thyroid Stim Hormone (TSH) 1.12 uIU/mL (0.358-3.74)
[2023-01-17 15:08] LABS: ANTINUCLEAR ANTIBODIES DIRECT Positive (Negative)
[2023-01-17 16:09] LABS: Anti-Thyroglobulin AB < 1.0 IU/mL (0.0-0.9); CCP IgG Antibodies 4 units (0-19); Thyroglobulin, Serum Qt. 21.3 ng/mL (1.5-38.5); Thyroid Peroxidase AB < 9 IU/mL (0-34)
[2023-01-21 13:07] LABS: Anti-Centromere B Ab <0.2 AI (0.0-0.9); Anti-Chromatin 0.2 AI (0.0-0.9); Anti-Jo <0.2 AI (0.0-0.9); Anti-Scleroderma-70 AB 1.1 AI (0.0-0.9); Anti-dsDNA Ab 1 IU/mL (0-9); Anti-ribosomal P Antibodies <0.2 AI (0.0-0.9); RNP Ab <0.2 AI (0.0-0.9); SJOGREN'S Anti-SS-A test < 0.2 AI (0.0-0.9); SJOGREN'S Anti-SS-B test < 0.2 AI (0.0-0.9); Smith Ab <0.2 AI (0.0-0.9); Smith/RNP Ab <0.2 AI (0.0-0.9)
== END | disposition home or self-care (01) ==
LOC: MTLAB 10:49
PROVIDERS: PCP Family Medicine; Referring Provider Family Medicine; Visit Provider Family Medicine
DX: K50.90 Crohn's disease, unspecified, without complications (principal)
CPT/HCPCS: 36415; 80053; 84432; 84439; 84443; 84481; 85025; 85652; 86038; 86140; 86200; 86225; 86235; 86376; 86431; 86800

== ENCOUNTER → 2023-10-03 | Outpatient (CLI) | payer MEDICAID, SELFPAY ==
[2023-10-03 12:05] LABS: Absolute Lymphocyte Count 1.63 X10^3/uL (0.83-4.51); Absolute Neutrophil Count 3.2 X10^3/uL (2.0-7.7); Basophil# 0.02 X10^3/uL; Basophil% 0.4 % (0-1); Eosinophil# 0.09 X10^3/uL; Eosinophils% 1.7 % (0-5); Hematocrit 42.3 % (37-47); Hemoglobin 14.1 g/dL (12.0-15.0); Lymphocyte # 1.63 X10^3/ul (0.83-4.51); Lymphocyte % 30.3 % (19-41); Mean Corp Hgb Conc 33.3 g/dL (32-36); Mean Corpuscular Hgb 30.5 pg (27.0-32.0); Mean Corpuscular Volume 91.4 fL (81-99); Mean Platelet Vol. 10.6 fl (6.2-12.0); Monocyte# 0.44 X10^3/uL; Monocyte% 8.2 % (0-10); NRBC Flagged by Analyzer 0 % (0-5); Neutrophil # 3.18 X10^3/uL (2.7-7.7); Platelet Count 207 K/mm3 (150-450); RBC Distribution Width CV 12.4 % (11.6-14.6); RBC Distribution Width SD 41.1 fl (35.1-43.9); Red Blood Count 4.63 M/mm3 (4.2-5.4); White Blood Count 5.4 K/mm3 (4.4-11.0)
[2023-10-03 12:32] LABS: Vitamin B12 509 pg/mL (211-911); Vitamin D,25 Hydroxy 34.6 ng/mL
[2023-10-03 12:49] LABS: ALB/GLOB Ratio 1.1 RATIO (0.9-2.4); AST(SGOT) 18 U/L (15-37); Alanine Aminotransfer ALT/SGPT 21 U/L (13-56); Alkaline Phosphatase 43 U/L (45-117); Anion Gap 4 (5-15); BUN 13 mg/dL (7-18); BUN/Creat Ratio 13.9 RATIO (10-20); Calcium,Total 9.4 mg/dL (8.5-10.1); Chloride 106 mmol/L (98-107); Creatinine, Serum 0.94 mg/dL (0.55-1.02); EST Glomerular Filtration Rate 72 mL/min (>60); Est Glom Filt Rate - Afr Amer 87 mL/min (>60); Ferritin 37 ng/mL (8-252); Globulin 3.7 g/dL (2.2-4.2); Glucose 93 mg/dL (74-106); Magnesium 2.2 mg/dL (1.6-2.6); Potassium 4.6 mmol/L (3.5-5.1); Protein, Total 7.7 g/dL (6.4-8.2); Sodium Level 136 mmol/L (136-145); Thyroid Stim Hormone (TSH) 1.15 uIU/mL (0.358-3.74)
[2023-10-03 13:08] LABS: Hemoglobin A1c 5.2 % (3.8-5.6)
== END | disposition home or self-care (01) ==
LOC: MFPLAB 11:07
PROVIDERS: PCP Family Medicine; Visit Provider Family Medicine
DX: R53.83 Other fatigue (principal)
CPT/HCPCS: 36415; 80053; 82306; 82607; 82728; 83036; 83735; 84443; 85025

== ENCOUNTER → 2023-10-07 | Outpatient (CLI) | payer OTHER, SELFPAY ==
[2023-10-10 10:09] LABS: HPV APTIMA, High Risk Negative (Negative)
== END | disposition home or self-care (01) ==
PROVIDERS: PCP Family Medicine; Referring Provider Family Medicine; Visit Provider Family Medicine
DX: Z12.4 Encounter for screening for malignant neoplasm of cervix (principal)
CPT/HCPCS: 87624; 88175; G0145